=== PATIENT | male | born 1990 | race Caucasian/White ===

== ENCOUNTER 2017-06-15 09:24 | Emergency (ER) | payer BC ==
[2017-06-15] MEDS ORDERED: Ibuprofen 600 MG Tab PO ONE (09:55)
--- NOTE | 2017-06-15 10:02 | EDM.PDOC ---
ED HPI GENERAL MEDICAL PROBLEM - General Chief Complaint: ENT Problem Stated Complaint: TOOTH PAIN Time Seen by Provider: 06/15/17 09:45 Source of Information: Reports: Patient History Limitations: Reports: No Limitations - History of Present Illness INITIAL COMMENTS - FREE TEXT/NARRATIVE: 27 yo male presents with a couple day hx of dental pain. Has not seen a dentist in yrs and has not called one yet for this problem. Drinks a lot of soda pop and smokes pot regularly. Has not had facial swelling or a fever. Has not been to his doctor. He has not taken anything for the pain. 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) (none) Tooth/Teeth Pain Score (Numeric/FACES): 10 - Related Data Allergies Allergy/AdvReac Type Severity Reaction Status Date / Time No Known Allergies Allergy Verified 06/15/17 09:42 Home Meds: Home Meds Penicillin V Potassium [IJD: Penicillin V Potassium] 500 mg PO .EVERY 6 HOURS # 40 tab 06/15/17 [Rx] Past Medical History - Past Health History Medical/Surgical History: Denies Medical/Surgical History Social & Family History - Tobacco Use Smoking Status *Q: Light Tobacco Smoker Years of Tobacco use: 12 Packs/Tins Daily: 0 - Alcohol Use Days Per Week of Alcohol Use: 4 Number of Drinks Per Day: 5 Total Drinks Per Week: 20 - Recreational Drug Use Recreational Drug Use: Yes Recreational Drug Type: Reports: Marijuana/Hashish Recreational Drug Use Frequency: Daily ED ROS ENT - Review of Systems Review Of Systems: See Below Constitutional: Reports: No Symptoms HEENT: Reports: Dental Pain. Denies: Ear Pain, Eye Discharge, Nose Pain, Rhinitis, Sinus Problem, Throat Pain, Throat Swelling Respiratory: Reports: No Symptoms Cardiovascular: Reports: No Symptoms Endocrine: Reports: No Symptoms GI/Abdominal: Reports: No Symptoms : Reports: No Symptoms Musculoskeletal: Reports: No Symptoms Skin: Reports: No Symptoms Neurological: Reports: No Symptoms ED EXAM, ENT - Physical Exam Exam: See Below Exam Limited By: No Limitations General Appearance: Alert, WD/WN, No Apparent Distress Eye Exam: Bilateral Eye: Normal Inspection Ears: Normal External Exam, Normal Canal, Hearing Grossly Normal, Normal TMs Nose: Normal Inspection, Normal Mucousa, No Blood Mouth/Throat: Normal Lips, Normal Oropharynx, Dental Abcess, Dental Pain, Dental Tenderness, Other (Extensive dental decay) Head: Atraumatic, Normocephalic. No: Facial Swelling, Facial Tenderness Neck: Normal Inspection, Supple, Non-Tender Respiratory/Chest: No Respiratory Distress, Lungs Clear, Normal Breath Sounds, No Accessory Muscle Use Cardiovascular: Regular Rate, Rhythm, No Edema Extremities: Normal Inspection Neurological: Alert, Oriented, CN II-XII Intact, Normal Cognition, No Motor/ Sensory Deficits Psychiatric: Normal Affect, Normal Mood Skin: Warm, Dry, Intact, Normal Color, No Rash Lymphatic: No Adenopathy Course - Vital Signs Last Recorded V/S: Last Vital Signs Temp 35.9 C 06/15/17 09:40 Pulse 62 06/15/17 09:40 Resp 16 06/15/17 09:40 BP 120/71 06/15/17 09:40 Pulse Ox 100 06/15/17 09:40 - Orders/Labs/Meds Meds: Medications Discontinued Medications Generic Name Dose Route Start Last Admin Trade Name Eduardq PRN Reason Stop Dose Admin Ibuprofen 600 mg 06/15/17 09:55 Motrin PO 06/15/17 09:56 ONETIME ONE Departure - Departure Time of Disposition: 10:05 Disposition: Home, Self-Care 01 Condition: Good Clinical Impression: Dental caries, Dental abscess, Dental caries extending into dentin, Pain, dental, Dental neglect - Discharge Information Prescriptions: Penicillin V Potassium [IJD: Penicillin V Potassium] 500 mg PO .EVERY 6 HOURS # 40 tab Referrals: PCP,None [Primary Care Provider] - Forms: ED Department Discharge Additional Instructions: Take Penicillin as directed until gone. Take ibuprofen 600 mg and/or acetaminophen 1000 mg every 6 hrs as needed for pain relief. Seek dental care ifrah. Return for a fever.
== END 2017-06-15 10:53 | disposition home or self-care (01) ==
LOC: JP.ED 09:24
DX: K04.7 Periapical abscess without sinus (principal); K02.9 Dental caries, unspecified; F17.210 Nicotine dependence, cigarettes, uncomplicated
CPT/HCPCS: 99283; A9270

== ENCOUNTER 2019-04-28 23:20 | Emergency (ER) | payer BC, OTHER ==
[2019-04-28] MEDS ORDERED: Lidocaine 1% with EPINEPHrine 1:100,000 50 ML MDV INFILT ONE (23:33)
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
[2019-04-29] MEDS ORDERED: Diphtheria,Pertussis(Acell),Tetanus Vaccine 0.5 ML SDV IM ONE (00:10)
== END 2019-04-29 00:41 ==
LOC: JP.ED 23:20
DX: S41.152A Open bite of left upper arm, initial encounter (principal); S21.132A Puncture wound without foreign body of left front wall of thorax without penetration into thoracic cavity, initial encounter; S20.312A Abrasion of left front wall of thorax, initial encounter; Z23 Encounter for immunization; F17.210 Nicotine dependence, cigarettes, uncomplicated; W54.0XXA Bitten by dog, initial encounter
CPT/HCPCS: 12004; 90471; 90715; 99283

== ENCOUNTER 2021-09-24 14:55 | Emergency (ER) | payer BC, OTHER | END 2021-09-24 16:05 | disposition home or self-care (01) | LOC: JP.ED 14:55 | DX: S52.502A Unspecified fracture of the lower end of left radius, initial encounter for closed fracture (principal); F17.200 Nicotine dependence, unspecified, uncomplicated; V22.4XXA Motorcycle driver injured in collision with two- or three-wheeled motor vehicle in traffic accident, initial encounter | CPT/HCPCS: 29125; 73110-26-LT; 73110-LT; 99282; 99284-25 ==